=== PATIENT | female | born 1985 | race Caucasian/White ===

== ENCOUNTER 2021-06-24 22:46 | Emergency (ER) | payer MEDICAID, OTHER ==
[~2021-06-24] VITALS: Ht 165.1 cm; Wt 93.0 kg
--- NOTE | 2021-06-24 22:55 | PHYS DOC ---
Past History Past Medical History: Arthritis, Hypothyroid, Other Past Surgical History: Tonsillectomy, Other Smoking: Non-smoker Alcohol Use: None Drug Use: None Adult General HPI HPI Patient is a 35-year-old female, at supposedly anywhere between 6 and 12 weeks by last menstrual cycle who presents with a chief complaint of concern for miscarriage. Patient states her first went well and child is doing well and second ended in miscarriage. States that she had an ultrasound with her [employer] 9 days ago and only showed a gestational sac and approximately 6 weeks with no fetus shown, which is in contradiction to last menstrual cycle estimated gestational age. States that she started having some light bright red vaginal bleeding last night which became heavy and she was going through a pad about every 2 hours. States that over the course of the day it has slowed down considerably, and has had some dark clots and only going through a pad about every 4-5 hours. States she occasionally has some cramping in her lower abdomen that feels similar to menstrual cycle and some nausea but no vomiting. Denies any recent travels, traumas, illnesses, chest pain, shortness of breath, other abdominal pain, dysuria diarrhea or blood in the stool. Denies any alcohol or drug use. States she did take her temperature at home earlier was 102. Denies any known ill contacts. Review of Systems Review of Systems Review of systems otherwise unremarkable except noted in HPI Allergies Allergies Allergies Coded Allergies Type Severity Reaction Last Updated Verified fentanyl Allergy Intermediate HIVES 12/29/13 No Physical Exam Physical Exam Constitutional: Well developed, well nourished, no acute distress, non-toxic appearance. [] HENT: Normocephalic, atraumatic, bilateral external ears normal, oropharynx moist, no oral exudates, nose normal. [] Eyes: PERRLA, EOMI, conjunctiva normal, no discharge. [] Neck: Normal range of motion, no tenderness, supple, no stridor. [] Cardiovascular:Heart rate regular rhythm, no murmur [] Lungs & Thorax: Bilateral breath sounds clear to auscultation [] Abdomen: soft, no tenderness, no masses, no pulsatile masses. [ :] No vaginal trauma or external bleeding, no vaginal tenderness, minimal to moderate dark thick blood with some clots and closed cervical os with no significant tenderness. Skin: Warm, dry, no erythema, no rash. [] Back: no CVA tenderness. [] Extremities: No tenderness, no cyanosis, no clubbing, ROM intact, no edema. [] Neurologic: Alert and oriented X 3, normal motor function, normal sensory function, no focal deficits noted. [] Psychologic: Affect normal, judgement normal, mood normal. [] EKG EKG [] Radiology/Procedures Radiology/Procedures [] Heart Score C/O Chest Pain: No Risk Factors: Risk Factors: DM, Current or recent (<one month) smoker, HTN, HLP, family history of CAD, obesity. Risk Scores: Risk Factors: DM, Current or recent (<one month) smoker, HTN, HLP, family history of CAD, obesity. Course & Med Decision Making Course & Med Decision Making Patient is a 35-year-old who presents with vaginal bleeding since last night, concern for miscarriage and directed to the ED by her [employer] Vital signs notable for sinus tachycardia. Physical exam noted above. Patient placed on the monitor with IV access established. [] Dragon Disclaimer Dragon Disclaimer This electronic medical record was generated, in whole or in part, using a voice recognition dictation system. Departure Departure: Impression: Primary Impression: Miscarriage Disposition: HOME / SELF CARE / HOMELESS Condition: STABLE Referrals: SUJIT SUERO MD (PCP) Patient Instructions: Miscarriage Additional Instructions: Thank you for coming into the emergency department tonight and allowing us to take care of you. Please read the attached information carefully to go back over some of the things we discussed. You continue to use Tylenol, ibuprofen and Benadryl every 6-8 hours as needed. As we discussed, your beta hCG was 1630. On exam your cervical os was closed and you had some scant dark blood on exam. It is very important that you follow-up in the morning with your [employer] and try to get an immediate follow-up visit tomorrow. I gave you a work note for the next 2 days to allow contact with your OB and going and see them if you can get an opening. As we discussed, please come back to the emergency department immediately with any of those new or concerning symptoms we talked about. QUINTON JOHNSON MD Jun 24, 2021 22:55
[2021-06-24] MEDS ORDERED: diphenhydrAMINE 50 MG/ML VIAL IVP ONE (23:30)
[2021-06-24] MEDS ORDERED: IV RINGERS SOLUTION,LACTATED 1,000 ML IV ONE (23:30)
[2021-06-24 23:36] LABS: COLOR,URINE YELLOW
[2021-06-24 23:37] LABS: BACTERIA,URINE 0 /HPF (0-FEW); BILIRUBIN,URINE NEG (NEG); CLARITY,URINE CLEAR; GLUCOSE,URINE NEG (NEG); NITRITE,URINE NEG (NEG); SQUAMOUS EPITHELIAL CELL,UR MOD /LPF; UROBILINOGEN,URINE 0.2 mg/dL (0.2 mg/dL); WBC,URINE OCC /HPF (0-4)
[2021-06-25] LABS: BASO % 1 % (0-3); EOS % 1 % (0-3); HEMATOCRIT 35.5 % (36.0-47.0); HEMOGLOBIN 11.9 g/dL (12.0-15.5); LYMPH # 0.6 x10^3/uL (1.0-4.8); LYMPH % 13 % (24-48); MEAN CORPUSCULAR HEMOGLOBIN 33 pg (25-35); MEAN CORPUSCULAR HGB CONC 34 g/dL (31-37); MEAN CORPUSCULAR VOLUME 99 fL (79-100); MONO # 0.3 x10^3/uL (0.0-1.1); MONO % 8 % (0-9); NEUT # 3.3 x10^3uL (1.8-7.7); NEUT % 78 % (31-73); PLATELET COUNT 204 x10^3/uL (140-400); RED BLOOD COUNT 3.59 x10^6/uL (3.50-5.40); RED CELL DISTRIBUTION WIDTH 13.3 % (11.5-14.5); WHITE BLOOD COUNT 4.3 x10^3/uL (4.0-11.0)
[2021-06-25 00:09] LABS: CALCIUM 8.2 mg/dL (8.5-10.1); CREATININE 0.7 mg/dL (0.6-1.0); GFR 95.8; POTASSIUM 3.6 mmol/L (3.5-5.1)
[2021-06-25] MEDS ORDERED: IBUPROFEN 600 MG TABLET. PO ONE (01:45)
[2021-06-25] MEDS ORDERED: TRANEXAMIC ACID 1,000 MG/10 ML VIAL. TOP ONE (01:45)
[2021-06-25] MEDS ORDERED: TRANEXAMIC ACID 1,000 MG in IV NORMAL SALINE 50ML 50 ML IV ONE (02:00)
[2021-06-25] MEDS ORDERED: IV NORMAL SALINE 50ML 50 ML ONE (02:01)
[2021-06-25 02:21] VITALS: BP 122/70
== END 2021-06-25 02:23 | disposition home or self-care (01) ==
LOC: ER 22:46
DX: O03.9 Complete or unspecified spontaneous abortion without complication (principal); M19.90 Unspecified osteoarthritis, unspecified site; E03.9 Hypothyroidism, unspecified; Z88.8 Allergy status to other drugs, medicaments and biological substances
CPT/HCPCS: 36415; 80048; 81001; 81025; 84702; 85025; 96361; 96374; 96375; 99284; J1200; J7120